=== PATIENT | female | born 1960 | race Caucasian/White ===

== ENCOUNTER 2016-07-26 12:40 | Emergency (ER) ==
[2016-07-26 13:13] VITALS: BP 107/86
--- NOTE | 2016-07-26 15:17 | PROVIDER DOCUMENTATION ---
HPI-EENT General - General Chief Complaint: Sinus Pain Stated Complaint: SINUS INFECTION Time Seen by Provider: 07/26/16 14:28 Source: patient Allergies/Adverse Reactions: Patient Allergies Allergy/AdvReac Type Severity Reaction Status Date / Time acetaminophen [From Lortab] Allergy Intermediate NAUSEA Verified 07/26/16 14:31 hydrocodone bitartrate * Allergy Intermediate NAUSEA Verified 07/26/16 14:31 [From Lortab] Penicillins Allergy Intermediate Unknown Verified 07/26/16 14:31 sulfamethoxazole Allergy Intermediate NAUSEA/VOMITING Verified 07/26/16 14:31 [From Bactrim] lightheaded ness trimethoprim [From Bactrim] Allergy Intermediate NAUSEA/VOMITING Verified 14:31 lightheaded ness Home Medications: Home Medication List Medication Instructions Recorded Confirmed Last Taken Type Albuterol Sulfate Inhaler 2 puff INH Q6H PRN PRN #1 inhaler 06/19/15 07/26/16 Unknown Rx [Ventolin Hfa] Inhaler, Assist Devices [Space 1 each MC DIRECTED #1 spacer 06/19/15 Unknown Rx Chamber Plus] Doxycycline 100 mg PO BID #14 capsule 07/26/16 Unknown Rx Fluticasone 50 Mcg Nasal [place] 1 spray RANJITH DAILY #1 bottle 07/26/16 Unknown Rx [Flonase] Guaifenesin/Pseudoephedrne HCl 1 each PO BID #30 tab.er.12h 07/26/16 Unknown Rx [Mucinex D ER Tablet] - History of Present Illness-EENT General Nature of Presenting Problem: 56 y/o WF c/o sinus pressure x 3 days. Pt states she is noting PND and sore throat. States hx of sinus infections in the past. Denies any cough, fever/ chills. No sick contacts, no ear pain, no N/V/D/C. Review of Systems - Adult - REVIEW OF SYSTEMS - ADULT Constitutional: reports: no symptoms reported. denies: chills, fever Eyes: reports: no symptoms reported. denies: blurred vision, double vision Ears, Nose, Mouth & Throat: reports: see HPI, sinus problem. denies: ear pain, throat pain Cardiovascular: reports: no symptoms reported. denies: chest pain, palpitations Respiratory: reports: no symptoms reported. denies: cough, shortness of breath Gastrointestinal: reports: no symptoms reported. denies: abdominal pain, nausea , vomiting Genitourinary: reports: no symptoms reported. denies: dysuria, frequency Musculoskeletal: reports: no symptoms reported. denies: joint pain, joint swelling Integumentary: reports: no symptoms reported. denies: nail changes, rash Neurological: reports: no symptoms reported. denies: numbness, paresthesia Psychiatric: reports: no symptoms reported Endocrine: reports: no symptoms reported. denies: cold intolerance, heat intolerance Hematologic/Lymphatic: reports: no symptoms reported. denies: easy bruising, prolonged bleeding Allergic/Immunologic: reports: no symptoms reported All Other Systems: Reviewed and Negative Past History - Adult - PAST MEDICAL HISTORY-ADULT Review of Records: reports: Nursing Assessment Review, Medications Reviewed Major Childhood Illnesses: reports: denies history Cardiovascular: reports: denies history Respiratory: reports: COPD Gastrointestinal: reports: denies history Obstetrical/Gynecological: reports: denies history Genitourinary: reports: denies history Musculoskeletal: reports: denies history Neurological: reports: denies history Endocrine/Immune: reports: denies history Other Conditions: reports: denies history - IMMUNIZATION STATUS Childhood Immunizations: See Nurse Assessment Flu Vaccine: See Nurse Assessment - FAMILY HISTORY Family History: reviewed, not pertinent - SOCIAL HISTORY Smoking: quit greater than 1 year Physical Exam- EENT - Physical Exam EENT Initial Vital Signs Reviewed: Yes General Appearance: alert, mild distress Eye Exam: bilateral eye: normal inspection Ear Exam: bilateral ear: auricle normal Nasal Exam: normal inspection, sinus tenderness (maxillary, bilat) Throat Exam: normal mouth inspection. negative: pharynx normal (erythema), tonsillar exudate Neck: supple, normal inspection, lymphadenopathy (mild, cervical) Respiratory: lungs clear, normal breath sounds. negative: crackles, rales, rhonchi, stridor, wheezing Cardiovascular: regular rate, rhythm. negative: bradycardia, tachycardia Abdominal Exam: normal bowel sounds, non tender, soft. negative: distended, guarding, rigid Lymphatic: negative: cervical node tenderness Back Exam: normal inspection Extremity: normal gait Integumentary: normal color, normal turgor, warm/dry Neurologic: negative: aphasia Psych/Mental Status: normal mood/affect, normal thought content, normal thought process, oriented x 3 Departure - Departure Time of Disposition Order: 15:15 DIAGNOSIS: Sinusitis Qualifiers: Sinusitis location: maxillary Chronicity: acute Recurrence: recurrent Qualified Code(s): J01.01 - Acute recurrent maxillary sinusitis Disposition: HOME 01 Certified Medical Emergency: Emergent Condition: Stable Additional Instructions: Take medications as directed. Follow up with PCP in 7 days for recheck. ED Follow Up Instructions: You have been treated by a care provider in the Emergency Department. These instructions are being provided to you so you can have an understanding of how to care for yourself upon discharge. Upon discharge from the Emergency Department, you are responsible for making arrangements for follow-up care by a physician of your choice. Take all prescribed medications as directed. Return to the Emergency Department immediately for any new or worsening symptoms. You may call the Physician Referral phone number at [phone] to obtain a list of Physicians who are taking new patients. Prescriptions: Doxycycline 100 mg PO BID #14 capsule Fluticasone 50 Mcg Nasal [place] [Flonase] 1 spray RANJITH DAILY #1 bottle Guaifenesin/Pseudoephedrne HCl [Mucinex D ER Tablet] 1 each PO BID #30 tab.er.12h Referrals: None,PCP [Primary Care Provider] - Attestation - Physician/ AMANDA Attestation Patient care was provided by Advanced Practice Provider:: Yes Advanced Practice Provider:: Mag Smith Advanced Practice Provider documentation review:: The Mid-level provider documentation, treatment plan and medical decision making was reviewed by the physician who agrees with all treatment and medical decision making by the MLP.
== END 2016-07-26 15:34 | disposition home or self-care (01) ==
LOC: ED 12:40
DX: J01.01 Acute recurrent maxillary sinusitis (principal); J34.89 Other specified disorders of nose and nasal sinuses; J44.9 Chronic obstructive pulmonary disease, unspecified; Z87.891 Personal history of nicotine dependence; R59.0 Localized enlarged lymph nodes; Z79.51 Long term (current) use of inhaled steroids
CPT/HCPCS: 99282